=== PATIENT | female | born 1955 | race Caucasian/White ===

== ENCOUNTER → 2021-03-03 | Outpatient (CLI) | payer MEDICARE, OTHER | LOC: MAMMO 12:10 | PROVIDERS: ATTEND Internal Medicine | DX: Z12.31 Encounter for screening mammogram for malignant neoplasm of breast (principal); M89.9 Disorder of bone, unspecified | CPT/HCPCS: 77067; 77080 ==

== ENCOUNTER → 2021-05-11 | Day surgery (SDC) | payer MEDICARE, OTHER ==
[2021-05-07 12:43] LABS: BASOPHILS # (AUTO) 0.1 (0.0-0.1); EOSINOPHILS # (AUTO) 0.2 (0.0-0.4); EOSINOPHILS % 2.6 % (0.0-6.0); HEMATOCRIT 40.9 % (34.2-44.1); HEMOGLOBIN 13.8 g/dL (12.0-16.0); LYMPHOCYTES % 27.4 % (18.0-39.1); MEAN CORPUSCULAR HEMOGLOBIN 28.2 pg (28-32); MEAN CORPUSCULAR HGB CONC 33.7 g/dL (31-35); MEAN CORPUSCULAR VOLUME 83.5 fL (81-99); MONOCYTES # (AUTO) 0.8 (0.2-0.8); NEUTROPHILS # (AUTO) 4.2 (2.1-6.9); NEUTROPHILS % 57.6 % (38.7-80.0); PLATELET COUNT 299 x10e3/uL (140-360); RED CELL DISTRIBUTION WIDTH 12.4 % (11.7-14.4)
[2021-05-07 13:16] LABS: ANION GAP 15.9 mmol/L (8-16); CALCIUM 9.7 mg/dL (8.4-10.2); CREATININE, SERUM 1.8 mg/dL (0.57-1.11); POTASSIUM 3.9 mmol/L (3.5-5.1)
[~2021-05-11] MED LIST: AMILORIDE HCL5 MG PO; AUGMENTIN 500-1 EACH PO; BENZTROPINE ME0.5 MG PO; BUPIVACAINE HCL 0.5% INJ 30 ML VIAL INJ ONE; GLIPIZIDE ER5 MG PO; LEXAPRO20 MG PO; LIDOCAINE HCL 2% LOCAL INJ 5 ML SDV VIAL INJ ONE; MAGNESIUM OXID400 MG PO; MELATONIN3 MG PO; METOCLOPRAM5 MG/5 ML PO; MONTELUKAST SOD10 MG PO; PEPCID AC10 MG PO; POTASSIUM CHLO20 ME1 PO; POVIDONE IODINE 0.05% 0.05 % ML PO ONE; PRAVASTATIN SOD20 MG PO; PROPOFOL IV EMULSION 10 MG/ML 20 ML VIAL ONE; PROTONIX20 MG PO; SPIRONOLACTONE25 MG PO; ZINC OD
[2021-05-11 07:45] VITALS: BP 119/65
== END | disposition home or self-care (01) ==
LOC: OR 05:32
PROVIDERS: ATTEND Specialist
DX: T84.84XA Pain due to internal orthopedic prosthetic devices, implants and grafts, initial encounter (principal); E26.81 Bartter's syndrome; I25.2 Old myocardial infarction; I34.1 Nonrheumatic mitral (valve) prolapse; E11.9 Type 2 diabetes mellitus without complications; Y83.8 Other surgical procedures as the cause of abnormal reaction of the patient, or of later complication, without mention of misadventure at the time of the procedure; Z88.6 Allergy status to analgesic agent; Z88.1 Allergy status to other antibiotic agents; Z88.8 Allergy status to other drugs, medicaments and biological substances; Z01.810 Encounter for preprocedural cardiovascular examination; Z01.812 Encounter for preprocedural laboratory examination; Z20.822 Contact with and (suspected) exposure to COVID-19; Z79.84 Long term (current) use of oral hypoglycemic drugs; Z68.30 Body mass index [BMI] 30.0-30.9, adult
CPT/HCPCS: 20610; 36415 ×2; 77002; 80048; 82948; 85025; 93005; J2001; J2704; U0002; 76000

== ENCOUNTER → 2021-06-21 | Outpatient (CLI) | payer MEDICARE, OTHER ==
[~2021-06-21] MED LIST changes: -BUPIVACAINE HCL 0.5% INJ 30 ML VIAL INJ ONE; -LIDOCAINE HCL 2% LOCAL INJ 5 ML SDV VIAL INJ ONE; -POVIDONE IODINE 0.05% 0.05 % ML PO ONE; -PROPOFOL IV EMULSION 10 MG/ML 20 ML VIAL ONE
== END ==
LOC: US 06:35
PROVIDERS: ATTEND Internal Medicine
DX: R06.02 Shortness of breath (principal); I71.4 Abdominal aortic aneurysm, without rupture; I73.9 Peripheral vascular disease, unspecified; M54.2 Cervicalgia; M79.605 Pain in left leg; M79.604 Pain in right leg
CPT/HCPCS: 71250; 72050; 76700; 93306; 93925

== ENCOUNTER → 2021-08-25 | Day surgery (SDC) | payer MEDICARE, OTHER ==
[2021-08-23 14:20] LABS: BASOPHILS # (AUTO) 0.1 (0.0-0.1); BASOPHILS % 0.9 % (0.0-1.0); EOSINOPHILS # (AUTO) 0.3 (0.0-0.4); EOSINOPHILS % 3.1 % (0.0-6.0); HEMATOCRIT 40.7 % (34.2-44.1); HEMOGLOBIN 13.6 g/dL (12.0-16.0); LYMPHOCYTES # (AUTO) 2.7 (1.0-3.2); LYMPHOCYTES % 28.3 % (18.0-39.1); MEAN CORPUSCULAR HEMOGLOBIN 27.6 pg (28-32); MEAN CORPUSCULAR HGB CONC 33.4 g/dL (31-35); MEAN CORPUSCULAR VOLUME 82.7 fL (81-99); MONOCYTES # (AUTO) 1.1 (0.2-0.8); MONOCYTES % 12.1 % (4.4-11.3); NEUTROPHILS # (AUTO) 5.1 (2.1-6.9); NEUTROPHILS % 54.9 % (38.7-80.0); PLATELET COUNT 257 x10e3/uL (140-360); RED BLOOD COUNT 4.92 x10e6/uL (3.6-5.1); RED CELL DISTRIBUTION WIDTH 13.4 % (11.7-14.4)
[~2021-08-25] MED LIST changes: +PROVENTIL HFA6.7 GM INH; +RENA-VITE TABL0.8 MG PO; +VITAMIN D250 MCG PO
[2021-08-25 13:10] VITALS: BP 121/74
== END | disposition home or self-care (01) ==
LOC: OR 10:21
PROVIDERS: ATTEND Internal Medicine Gastroenterology
DX: K21.9 Gastro-esophageal reflux disease without esophagitis (principal); K29.70 Gastritis, unspecified, without bleeding; K20.90 Esophagitis, unspecified without bleeding; K31.1 Adult hypertrophic pyloric stenosis; E11.9 Type 2 diabetes mellitus without complications; I25.2 Old myocardial infarction; I44.4 Left anterior fascicular block; E87.6 Hypokalemia; E83.42 Hypomagnesemia; E78.00 Pure hypercholesterolemia, unspecified; F32.A Depression, unspecified; Z01.810 Encounter for preprocedural cardiovascular examination; Z01.812 Encounter for preprocedural laboratory examination; Z20.822 Contact with and (suspected) exposure to COVID-19; Z79.84 Long term (current) use of oral hypoglycemic drugs; Z68.30 Body mass index [BMI] 30.0-30.9, adult; Z86.010 Personal history of colon polyps
CPT/HCPCS: 36415 ×2; 43239; 43245; 82948; 85025; 88305; 88312; 93005; C1726; C9113; U0002; 43450

== ENCOUNTER 2022-05-30 20:36 | Emergency (ER) | payer MEDICARE, OTHER ==
[~2022-05-30] VITALS: Ht 162.6 cm; Wt 57.6 kg
[2022-05-30] MEDS ORDERED: ONDANSETRON HCL INJ 2MG/ML 2ML 2 MG/ML VIAL IV STA (20:46)
[2022-05-30 21:13] LABS: BASOPHILS # (AUTO) 0.1 (0.0-0.1); BASOPHILS % 0.7 % (0.0-1.0); EOSINOPHILS # (AUTO) 0.1 (0.0-0.4); EOSINOPHILS % 1.6 % (0.0-6.0); HEMATOCRIT 41.1 % (34.2-44.1); HEMOGLOBIN 13.9 g/dL (12.0-16.0); LYMPHOCYTES # (AUTO) 2.4 (1.0-3.2); LYMPHOCYTES % 29.6 % (18.0-39.1); MEAN CORPUSCULAR HEMOGLOBIN 29.3 pg (28-32); MEAN CORPUSCULAR HGB CONC 33.8 g/dL (31-35); MEAN CORPUSCULAR VOLUME 86.7 fL (81-99); MONOCYTES % 12.3 % (4.4-11.3); NEUTROPHILS # (AUTO) 4.5 (2.1-6.9); NEUTROPHILS % 55.6 % (38.7-80.0); PLATELET COUNT 305 x10e3/uL (140-360); RED BLOOD COUNT 4.74 x10e6/uL (3.6-5.1); RED CELL DISTRIBUTION WIDTH 12.8 % (11.7-14.4)
[2022-05-30 21:30] LABS: ALBUMIN/GLOBULIN RATIO 1.1 (0.8-2.0); ANION GAP 16.2 mmol/L (8-16); CALCIUM 10.2 mg/dL (8.4-10.2); CREATININE, SERUM 1.81 mg/dL (0.57-1.11); POTASSIUM 4.2 mmol/L (3.5-5.1)
[2022-05-31] MEDS ORDERED: KLOR-CON M2020 MEQ PO (12:39)
[2022-05-31] MEDS ORDERED: MAGNESIUM OXID400 MG PO (12:41)
== END 2022-05-30 22:04 | disposition home or self-care (01) ==
LOC: ER 20:41
DX: R10.10 Upper abdominal pain, unspecified (principal); K29.70 Gastritis, unspecified, without bleeding; K44.9 Diaphragmatic hernia without obstruction or gangrene; E11.22 Type 2 diabetes mellitus with diabetic chronic kidney disease; N18.9 Chronic kidney disease, unspecified; K21.9 Gastro-esophageal reflux disease without esophagitis
CPT/HCPCS: 36415; 74022; 80053; 82784; 83516; 83690; 85025; 86256; 99284; C9113; J2405

== ENCOUNTER 2022-05-31 10:20 | Inpatient (IN) | payer MEDICARE, OTHER ==
[~2022-05-31] VITALS: Ht 162.6 cm; Wt 57.6 kg
[2022-05-31] MEDS ORDERED: METOCLOPRAMIDE HCL 10 MG/2ML VIAL IV PRN (12:00)
[2022-05-31] MEDS ORDERED: KLOR-CON M2020 MEQ PO (12:39)
[2022-05-31] MEDS ORDERED: MAGNESIUM OXID400 MG PO (12:41)
[2022-05-31 13:18] LABS: CREATINE KINASE MB 1.7 ng/mL (0-5.0)
[2022-05-31] MEDS: SODIUM CHLORIDE 0.9% 1000ML 1,000 ML IV SCH ×2 (13:30→20:00)
[2022-05-31 13:41] VITALS: BP 125/72
[2022-05-31 13:42] VITALS: BP 125/72
[2022-05-31 13:47] VITALS: BP 125/72
[2022-05-31] MEDS: ONDANSETRON HCL INJ 2MG/ML 2ML 2 MG/ML VIAL IV PRN ×2 (13:54→20:18)
[2022-05-31] MEDS: Morphine 4mg INJECTION 4 MG/ML INJ IV PRN ×2 (13:54→20:18)
[2022-05-31] MEDS ORDERED: NON-FORMULARY MEDICATION (Benztropine Mesylate 0.5 MG) PO SCH (17:00)
[2022-05-31 17:16] VITALS: BP 97/86
[2022-05-31] MEDS: PANTOPRAZOLE SOD 40 MG TABEC PO SCH (17:17)
[2022-05-31] MEDS: BENZTROPINE MESYLATE 1 MG TAB PO SCH (17:17)
[2022-05-31] MEDS: POTASSIUM CHLORIDE 20 MEQ TAB CR PO SCH (17:17)
[2022-05-31] MEDS: MAGNESIUM OXIDE 400 MG TAB PO SCH (17:17)
[2022-05-31 17:23] LABS: CHOL/HDL RATIO 2.8 (3.0-3.6)
[2022-05-31 20:00] VITALS: BP 118/74
[2022-05-31] MEDS: PRAVASTATIN 20 MG TAB PO SCH (20:31)
[2022-05-31] MEDS: MELATONIN 5 MG TABLET PO SCH (20:31)
[2022-05-31] MEDS ORDERED: PRAVASTATIN 20 MG TAB PO SCH (21:00)
[2022-05-31 21:19] LABS: CREATINE KINASE 59 IU/L (29-168)
[2022-06-01] VITALS (11 sets, daily range): BP systolic 108–136; BP diastolic 55–97
[2022-06-01] MEDS: SODIUM CHLORIDE 0.9% 1000ML 1,000 ML IV SCH ×3 (01:53→21:53)
[2022-06-01] MEDS: ONDANSETRON HCL INJ 2MG/ML 2ML 2 MG/ML VIAL IV PRN ×3 (06:02→19:48)
[2022-06-01] MEDS: Morphine 4mg INJECTION 4 MG/ML INJ IV PRN ×3 (06:02→19:48)
[2022-06-01 07:07] LABS: ALBUMIN 3.2 g/dL (3.5-5.0); ALBUMIN/GLOBULIN RATIO 1.1 (0.8-2.0); ANION GAP 12.5 mmol/L (8-16); CALCIUM 9.1 mg/dL (8.4-10.2); CREATININE, SERUM 1.65 mg/dL (0.57-1.11); POTASSIUM 3.5 mmol/L (3.5-5.1)
[2022-06-01 08:38] LABS: CREATINE KINASE 54 IU/L (29-168)
[2022-06-01] MEDS: BENZTROPINE MESYLATE 1 MG TAB PO SCH ×2 (09:00→17:21)
[2022-06-01 09:47] LABS: BASOPHILS % 0.6 % (0.0-1.0); EOSINOPHILS # (AUTO) 0.2 (0.0-0.4); EOSINOPHILS % 3.4 % (0.0-6.0); HEMATOCRIT 36.4 % (34.2-44.1); HEMOGLOBIN 11.8 g/dL (12.0-16.0); LYMPHOCYTES # (AUTO) 2.4 (1.0-3.2); LYMPHOCYTES % 36.4 % (18.0-39.1); MEAN CORPUSCULAR HEMOGLOBIN 29.5 pg (28-32); MEAN CORPUSCULAR HGB CONC 32.4 g/dL (31-35); MONOCYTES # (AUTO) 0.8 (0.2-0.8); MONOCYTES % 11.8 % (4.4-11.3); NEUTROPHILS # (AUTO) 3.1 (2.1-6.9); NEUTROPHILS % 47.2 % (38.7-80.0); PLATELET COUNT 240 x10e3/uL (140-360); RED CELL DISTRIBUTION WIDTH 13.1 % (11.7-14.4)
[2022-06-01 10:29] LABS: AMYLASE 41 U/L (25-125); LIPASE 32 U/L (8-78)
[2022-06-01] MEDS: POTASSIUM CHLORIDE 20 MEQ TAB CR PO SCH ×2 (11:53→17:21)
[2022-06-01] MEDS: PANTOPRAZOLE SOD 40 MG TABEC PO SCH ×2 (11:54→17:20)
[2022-06-01] MEDS: ESCITALOPRAM OXALATE 10 MG TAB PO SCH (11:54)
[2022-06-01] MEDS: MAGNESIUM OXIDE 400 MG TAB PO SCH ×2 (11:54→17:20)
[2022-06-01] MEDS: MONTELUKAST SODIUM 10 MG TAB PO SCH (11:55)
[2022-06-01] MEDS: FOLIC ACID/CYANOCOB/PYRIDOXINE TAB PO SCH (11:55)
[2022-06-01] MEDS: PRAVASTATIN 20 MG TAB PO SCH (21:53)
[2022-06-01] MEDS: MELATONIN 5 MG TABLET PO SCH (21:53)
[2022-06-02] VITALS (8 sets, daily range): BP systolic 89–155; BP diastolic 53–102
[2022-06-02] MEDS: Morphine 4mg INJECTION 4 MG/ML INJ IV PRN (01:21)
[2022-06-02] MEDS: ONDANSETRON HCL INJ 2MG/ML 2ML 2 MG/ML VIAL IV PRN ×2 (01:21→13:10)
[2022-06-02] MEDS ORDERED: KETOROLAC TROMETHAMINE 30 MG/ML VIAL IM PRN (02:15)
[2022-06-02] MEDS: HYDROMORPHONE 1MG/1ML INJ IV PRN ×3 (03:45→21:38)
[2022-06-02] MEDS: SODIUM CHLORIDE 0.9% 1000ML 1,000 ML IV SCH ×3 (05:55→21:29)
[2022-06-02 06:41] LABS: BASOPHILS % 0.3 % (0.0-1.0); EOSINOPHILS # (AUTO) 0.1 (0.0-0.4); EOSINOPHILS % 0.9 % (0.0-6.0); HEMATOCRIT 33.5 % (34.2-44.1); HEMOGLOBIN 11.6 g/dL (12.0-16.0); LYMPHOCYTES # (AUTO) 1.5 (1.0-3.2); LYMPHOCYTES % 17.7 % (18.0-39.1); MEAN CORPUSCULAR HEMOGLOBIN 30.1 pg (28-32); MEAN CORPUSCULAR HGB CONC 34.6 g/dL (31-35); MEAN CORPUSCULAR VOLUME 86.8 fL (81-99); MONOCYTES # (AUTO) 0.9 (0.2-0.8); MONOCYTES % 10.6 % (4.4-11.3); PLATELET COUNT 250 x10e3/uL (140-360); RED BLOOD COUNT 3.86 x10e6/uL (3.6-5.1); RED CELL DISTRIBUTION WIDTH 12.8 % (11.7-14.4)
[2022-06-02 06:54] LABS: INR 0.93; PROTHROMBIN TIME 13.3 seconds (11.9-14.5)
[2022-06-02 07:08] LABS: ALBUMIN 3.2 g/dL (3.5-5.0); ALBUMIN/GLOBULIN RATIO 1.2 (0.8-2.0); ANION GAP 15.3 mmol/L (8-16); CALCIUM 8.9 mg/dL (8.4-10.2); CREATININE, SERUM 1.67 mg/dL (0.57-1.11); MAGNESIUM 1.6 MG/DL (1.3-2.1); POTASSIUM 3.3 mmol/L (3.5-5.1)
[2022-06-02] MEDS ORDERED: FENTANYL CITRATE/PF 100MCG/2 ML INJ ONE ×2 (08:15→13:58)
[2022-06-02] MEDS ORDERED: POTASSIUM CHLORIDE 10MEQ/100ML 200 ML IV ONE (08:30)
[2022-06-02] MEDS ORDERED: MAGNESIUM SULF 1GRAM/DEXTROSE 100 ML IV ONE (09:00)
[2022-06-02] MEDS: MONTELUKAST SODIUM 10 MG TAB PO SCH (09:53)
[2022-06-02] MEDS: POTASSIUM CHLORIDE 20 MEQ TAB CR PO SCH ×2 (09:53→18:05)
[2022-06-02] MEDS: FOLIC ACID/CYANOCOB/PYRIDOXINE TAB PO SCH (09:53)
[2022-06-02] MEDS: PANTOPRAZOLE SOD 40 MG TABEC PO SCH ×2 (09:54→18:05)
[2022-06-02] MEDS: BENZTROPINE MESYLATE 1 MG TAB PO SCH ×2 (09:54→18:05)
[2022-06-02] MEDS: ESCITALOPRAM OXALATE 10 MG TAB PO SCH (09:54)
[2022-06-02] MEDS: MAGNESIUM OXIDE 400 MG TAB PO SCH ×2 (09:54→18:05)
[2022-06-02] MEDS ORDERED: PROPOFOL IV EMULSION 10 MG/ML 20 ML VIAL ONE (13:45)
[2022-06-02] MEDS ORDERED: LIDOCAINE HCL 2% LOCAL INJ 5 ML SDV VIAL INJ ONE (13:45)
[2022-06-02] MEDS ORDERED: POVIDONE IODINE 0.05% 0.05 % ML PO ONE (13:45)
[2022-06-02] MEDS: SODIUM BICARBONATE 650 MG TAB PO SCH (18:05)
[2022-06-02] MEDS: MELATONIN 5 MG TABLET PO SCH (21:28)
[2022-06-02] MEDS: PRAVASTATIN 20 MG TAB PO SCH (21:28)
[2022-06-03] VITALS: BP 138/76
[2022-06-03 04:00] VITALS: BP 131/52
[2022-06-03 06:12] LABS: BASOPHILS # (AUTO) 0.1 (0.0-0.1); BASOPHILS % 0.7 % (0.0-1.0); EOSINOPHILS # (AUTO) 0.3 (0.0-0.4); EOSINOPHILS % 4.1 % (0.0-6.0); HEMATOCRIT 32.9 % (34.2-44.1); HEMOGLOBIN 10.9 g/dL (12.0-16.0); LYMPHOCYTES # (AUTO) 1.7 (1.0-3.2); LYMPHOCYTES % 23.4 % (18.0-39.1); MEAN CORPUSCULAR HEMOGLOBIN 29.6 pg (28-32); MEAN CORPUSCULAR HGB CONC 33.1 g/dL (31-35); MEAN CORPUSCULAR VOLUME 89.4 fL (81-99); MONOCYTES # (AUTO) 0.8 (0.2-0.8); MONOCYTES % 11.4 % (4.4-11.3); NEUTROPHILS # (AUTO) 4.4 (2.1-6.9); NEUTROPHILS % 60.1 % (38.7-80.0); PLATELET COUNT 217 x10e3/uL (140-360); RED BLOOD COUNT 3.68 x10e6/uL (3.6-5.1)
[2022-06-03 06:36] LABS: ALBUMIN 2.8 g/dL (3.5-5.0); ANION GAP 13.9 mmol/L (8-16); CALCIUM 8.1 mg/dL (8.4-10.2); CREATININE, SERUM 1.36 mg/dL (0.57-1.11); MAGNESIUM 1.6 MG/DL (1.3-2.1)
[2022-06-03 06:55] LABS: POTASSIUM 2.9 mmol/L (3.5-5.1)
[2022-06-03] MEDS: SODIUM CHLORIDE 0.9% 1000ML 1,000 ML IV SCH ×2 (07:26→12:20)
[2022-06-03 08:00] VITALS: BP 131/52
[2022-06-03 08:16] VITALS: BP 123/54
[2022-06-03] MEDS ORDERED: POTASSIUM CHLORIDE 20 MEQ TAB CR PO ONE (09:30)
[2022-06-03] MEDS ORDERED: MAGNESIUM OXIDE 400 MG TAB PO ONE (09:30)
[2022-06-03] MEDS: SODIUM BICARBONATE 650 MG TAB PO SCH (10:56)
[2022-06-03] MEDS: POTASSIUM CHLORIDE 20 MEQ TAB CR PO SCH (10:57)
[2022-06-03] MEDS: BENZTROPINE MESYLATE 1 MG TAB PO SCH (11:01)
[2022-06-03] MEDS: MONTELUKAST SODIUM 10 MG TAB PO SCH (11:01)
[2022-06-03] MEDS: PANTOPRAZOLE SOD 40 MG TABEC PO SCH (11:02)
[2022-06-03] MEDS: MAGNESIUM OXIDE 400 MG TAB PO SCH (11:02)
[2022-06-03] MEDS: FOLIC ACID/CYANOCOB/PYRIDOXINE TAB PO SCH (11:02)
[2022-06-03] MEDS: ESCITALOPRAM OXALATE 10 MG TAB PO SCH (11:04)
[2022-06-03 12:19] VITALS: BP 111/58
[2022-06-03 13:56] LABS: ANION GAP 13.9 mmol/L (8-16); CALCIUM 8.4 mg/dL (8.4-10.2); CREATININE, SERUM 1.67 mg/dL (0.57-1.11); POTASSIUM 3.9 mmol/L (3.5-5.1)
[2022-06-03] MEDS ORDERED: ONDANSETRON HCL 4 MG ORAL DISINTEGRATING TAB PO PRN (15:00)
== END 2022-06-03 16:07 | disposition home health service (06) | DRG 560 ==
LOC: ER 11:24 → ERHOLD 11:59 → MED/SURG2 13:20
PROVIDERS: ADMIT Internal Medicine; ATTEND Internal Medicine
PROC: 0SWAXJZ Revision of Synthetic Substitute in Right Hip Joint, Acetabular Surface, External Approach (ICD-10-PCS; principal; 2022-06-02 07:43)
DX: T84.020A Dislocation of internal right hip prosthesis, initial encounter (principal); E87.2 Acidosis; N17.9 Acute kidney failure, unspecified; E26.81 Bartter's syndrome; E11.22 Type 2 diabetes mellitus with diabetic chronic kidney disease; E11.43 Type 2 diabetes mellitus with diabetic autonomic (poly)neuropathy; E87.8 Other disorders of electrolyte and fluid balance, not elsewhere classified; K31.84 Gastroparesis; K21.9 Gastro-esophageal reflux disease without esophagitis; E11.65 Type 2 diabetes mellitus with hyperglycemia; I12.9 Hypertensive chronic kidney disease with stage 1 through stage 4 chronic kidney disease, or unspecified chronic kidney disease; G24.9 Dystonia, unspecified; I25.10 Atherosclerotic heart disease of native coronary artery without angina pectoris; N18.32 Chronic kidney disease, stage 3b; M81.0 Age-related osteoporosis without current pathological fracture; R07.89 Other chest pain; E87.6 Hypokalemia; Z87.891 Personal history of nicotine dependence; Z96.641 Presence of right artificial hip joint; I25.2 Old myocardial infarction; Z88.3 Allergy status to other anti-infective agents
CPT/HCPCS: 0223U; 36415; 71045; 76770; 80048; 80053; 80061; 82150; 82550; 82553; 82948; 83036; 83690; 83735; 84484; 85025; 85610; 93005; 93306; 97139; 99251; 99284; J1170; J2001; J2270; J2405; J3010; J3475; J3480; J7030

== ENCOUNTER 2022-06-17 10:27 | Emergency (ER) | payer MEDICARE, OTHER ==
[~2022-06-17] VITALS: Ht 162.6 cm; Wt 57.6 kg
[~2022-06-17 10:27] MED LIST changes: +KLOR-CON M2020 MEQ PO
[2022-06-17] MEDS ORDERED: ONDANSETRON HCL INJ 2MG/ML 2ML 2 MG/ML VIAL IV STA (10:43)
[2022-06-17] MEDS ORDERED: Morphine 4mg INJECTION 4 MG/ML INJ IV ONE (10:45)
[2022-06-17] MEDS ORDERED: SODIUM CHLORIDE 0.9% 1000ML 1,000 ML IV SCH (10:45)
[2022-06-17 10:56] LABS: BASOPHILS # (AUTO) 0.1 (0.0-0.1); BASOPHILS % 0.8 % (0.0-1.0); EOSINOPHILS # (AUTO) 0.2 (0.0-0.4); EOSINOPHILS % 2.1 % (0.0-6.0); HEMATOCRIT 40.8 % (34.2-44.1); HEMOGLOBIN 13.6 g/dL (12.0-16.0); LYMPHOCYTES # (AUTO) 1.6 (1.0-3.2); LYMPHOCYTES % 17.1 % (18.0-39.1); MEAN CORPUSCULAR HEMOGLOBIN 29.5 pg (28-32); MEAN CORPUSCULAR HGB CONC 33.3 g/dL (31-35); MEAN CORPUSCULAR VOLUME 88.5 fL (81-99); MONOCYTES # (AUTO) 0.9 (0.2-0.8); MONOCYTES % 9.6 % (4.4-11.3); NEUTROPHILS # (AUTO) 6.6 (2.1-6.9); NEUTROPHILS % 69.6 % (38.7-80.0); PLATELET COUNT 283 x10e3/uL (140-360); RED BLOOD COUNT 4.61 x10e6/uL (3.6-5.1); RED CELL DISTRIBUTION WIDTH 12.7 % (11.7-14.4)
[2022-06-17] MEDS ORDERED: ONDANSETRON HCL INJ 2MG/ML 2ML 2 MG/ML VIAL ONE (11:02)
[2022-06-17] MEDS ORDERED: Morphine 4mg INJECTION 4 MG/ML INJ ONE (11:02)
[2022-06-17] MEDS ORDERED: SODIUM CHLORIDE 0.9% 1000ML 1,000 ML ONE ×2 (11:02→12:13)
[2022-06-17 11:13] LABS: ALBUMIN 3.8 g/dL (3.5-5.0); CALCIUM 9.9 mg/dL (8.4-10.2); CREATININE, SERUM 1.89 mg/dL (0.57-1.11)
[2022-06-17] MEDS ORDERED: PROPOFOL IV EMULSION 10 MG/ML 20 ML VIAL IV ONE (11:45)
[2022-06-17 12:00] VITALS: BP 113/58
[2022-06-17] MEDS ORDERED: TRAMADOL HCL 50 MG TAB PO ONE (13:00)
== END 2022-06-17 14:43 | disposition home or self-care (01) ==
LOC: ER 10:36
DX: M25.551 Pain in right hip (principal); S73.014A Posterior dislocation of right hip, initial encounter; X50.1XXA Overexertion from prolonged static or awkward postures, initial encounter; Y92.091 Bathroom in other non-institutional residence as the place of occurrence of the external cause; E11.9 Type 2 diabetes mellitus without complications; N18.9 Chronic kidney disease, unspecified; K21.9 Gastro-esophageal reflux disease without esophagitis; F32.A Depression, unspecified
CPT/HCPCS: 27252; 36415; 72170; 73501; 80053; 85025; 99284; J2270; J2405; J2704; J7030

== ENCOUNTER 2022-07-05 19:45 | Inpatient (IN) | payer MEDICARE, OTHER ==
[~2022-07-05] VITALS: Ht 160 cm; Wt 57.6 kg
[2022-07-05] MEDS ORDERED: Morphine 4mg INJECTION 4 MG/ML INJ IV STA (20:07)
[2022-07-05] MEDS ORDERED: ONDANSETRON HCL INJ 2MG/ML 2ML 2 MG/ML VIAL IV STA (20:08)
[2022-07-05 20:09] LABS: BASOPHILS # (AUTO) 0.1 (0.0-0.1); BASOPHILS % 0.6 % (0.0-1.0); EOSINOPHILS # (AUTO) 0.3 (0.0-0.4); EOSINOPHILS % 3.1 % (0.0-6.0); HEMATOCRIT 38.3 % (34.2-44.1); HEMOGLOBIN 12.8 g/dL (12.0-16.0); LYMPHOCYTES # (AUTO) 3.3 (1.0-3.2); LYMPHOCYTES % 31.3 % (18.0-39.1); MEAN CORPUSCULAR HEMOGLOBIN 29.4 pg (28-32); MEAN CORPUSCULAR HGB CONC 33.4 g/dL (31-35); MONOCYTES # (AUTO) 1.1 (0.2-0.8); MONOCYTES % 10.5 % (4.4-11.3); NEUTROPHILS # (AUTO) 5.7 (2.1-6.9); PLATELET COUNT 298 x10e3/uL (140-360); RED BLOOD COUNT 4.35 x10e6/uL (3.6-5.1); RED CELL DISTRIBUTION WIDTH 12.3 % (11.7-14.4)
[2022-07-05] MEDS ORDERED: PROPOFOL IV EMULSION 10 MG/ML 20 ML VIAL IV STA (20:34)
[2022-07-05] MEDS ORDERED: KETAMINE HCL INJ 50 MG/ML 10 ML VIAL IV STA (20:34)
[2022-07-05 21:06] LABS: ALBUMIN/GLOBULIN RATIO 1.2 (0.8-2.0); ANION GAP 20.4 mmol/L (8-16); CALCIUM 9.7 mg/dL (8.4-10.2); CREATININE, SERUM 1.82 mg/dL (0.57-1.11); POTASSIUM 3.4 mmol/L (3.5-5.1)
[2022-07-05] MEDS ORDERED: Morphine 4mg INJECTION 4 MG/ML INJ IV PRN ×2 (21:30→23:45)
[2022-07-05] MEDS: SODIUM CHLORIDE 0.9% 1000ML 1,000 ML IV SCH (21:30)
[2022-07-05] MEDS ORDERED: Morphine 4mg INJECTION 4 MG/ML INJ IV ONE (23:45)
[2022-07-05] MEDS ORDERED: ONDANSETRON HCL INJ 2MG/ML 2ML 2 MG/ML VIAL IV PRN (23:45)
[2022-07-06] VITALS (7 sets, daily range): BP systolic 103–125; BP diastolic 59–87
[2022-07-06] MEDS: ONDANSETRON HCL INJ 2MG/ML 2ML 2 MG/ML VIAL IV PRN ×2 (03:33→08:15)
[2022-07-06] MEDS ORDERED: HYDROMORPHONE 1MG/1ML INJ IV PRN (08:45)
[2022-07-06] MEDS: ESCITALOPRAM OXALATE 10 MG TAB PO SCH ×2 (09:00→13:43)
[2022-07-06] MEDS: MAGNESIUM OXIDE 400 MG TAB PO SCH ×2 (09:00→13:43)
[2022-07-06] MEDS: MONTELUKAST SODIUM 10 MG TAB PO SCH ×2 (09:00→13:41)
[2022-07-06] MEDS: BENZTROPINE MESYLATE 1 MG TAB PO SCH ×2 (10:00→13:41)
[2022-07-06] MEDS: POTASSIUM CHLORIDE 20 MEQ TAB CR PO STA ×2 (11:20→13:43)
[2022-07-06] MEDS: SODIUM CHLORIDE 0.9% 1000ML 1,000 ML IV SCH ×2 (11:20→13:46)
[2022-07-06] MEDS ORDERED: SODIUM CHLORIDE 0.9% 1000ML 1,000 ML ONE (11:22)
[2022-07-06] MEDS ORDERED: DIPHENHYDRAMINE HCL INJ 50 MG/ML VIAL IV PRN (12:30)
[2022-07-06] MEDS ORDERED: KETOROLAC TROMETHAMINE 30 MG/ML VIAL IV PRN (12:30)
[2022-07-06] MEDS ORDERED: FENTANYL CITRATE/PF 100MCG/2 ML INJ ONE (12:53)
[2022-07-06 14:42] LABS: ANION GAP 16.3 mmol/L (8-16); CALCIUM 9.1 mg/dL (8.4-10.2); CREATININE, SERUM 1.49 mg/dL (0.57-1.11); MAGNESIUM 1.7 MG/DL (1.3-2.1); POTASSIUM 3.3 mmol/L (3.5-5.1)
[2022-07-06] MEDS ORDERED: PANTOPRAZOLE SOD 40 MG TABEC PO SCH (16:30)
[2022-07-06] MEDS ORDERED: ACETAMINOPHEN 325 MG TAB PO NR (17:30)
[2022-07-06] MEDS ORDERED: ULTRAM 50MG50 MG PO (17:43)
[2022-07-06] MEDS ORDERED: PROMETHAZINE HC25 M1 PO (17:44)
[2022-07-06] MEDS ORDERED: DICYCLOMINE HCL10 MG PO (17:45)
[2022-07-06] MEDS ORDERED: GLIPIZIDE ER5 MG PO (17:47)
[2022-07-06] MEDS ORDERED: AMILORIDE HCL5 MG PO (17:47)
[2022-07-06] MEDS ORDERED: SPIRONOLACTONE25 MG PO (17:47)
[2022-07-06] MEDS ORDERED: NEPHRO-VITE TABL1 EA PO (17:47)
[2022-07-06] MEDS ORDERED: PRAVASTATIN 20 MG TAB PO SCH (21:00)
[2022-07-06] MEDS ORDERED: MELATONIN 5 MG TABLET PO SCH (21:00)
== END 2022-07-06 18:37 | disposition home or self-care (01) | DRG 561 ==
LOC: ER 19:49 → ERHOLD 21:25 → ER 23:10 → MED/SURG 23:53
PROVIDERS: ADMIT Internal Medicine; ATTEND Internal Medicine
PROC: 0SS9XZZ Reposition Right Hip Joint, External Approach (ICD-10-PCS; principal; 2022-07-06 12:12)
DX: T84.020A Dislocation of internal right hip prosthesis, initial encounter (principal); N18.32 Chronic kidney disease, stage 3b; E26.81 Bartter's syndrome; I10 Essential (primary) hypertension; E11.22 Type 2 diabetes mellitus with diabetic chronic kidney disease; E11.43 Type 2 diabetes mellitus with diabetic autonomic (poly)neuropathy; I12.9 Hypertensive chronic kidney disease with stage 1 through stage 4 chronic kidney disease, or unspecified chronic kidney disease; K31.84 Gastroparesis; X50.9XXA Other and unspecified overexertion or strenuous movements or postures, initial encounter; Y92.009 Unspecified place in unspecified non-institutional (private) residence as the place of occurrence of the external cause; Z20.822 Contact with and (suspected) exposure to COVID-19
CPT/HCPCS: 36415; 72170; 76000; 80048; 80053; 82948; 83735; 85025; 94799; 99251; 99284; 99285; J2270; J2405; J3010; J7030

== ENCOUNTER 2022-08-11 17:04 | Emergency (ER) | payer MEDICARE, OTHER ==
[~2022-08-11] VITALS: Ht 152.4 cm; Wt 55.8 kg
[~2022-08-11 17:04] MED LIST changes: +DICYCLOMINE HCL10 MG PO; +NEPHRO-VITE TABL1 EA PO; +PROMETHAZINE HC25 M1 PO; +ULTRAM 50MG50 MG PO
== END 2022-08-11 18:25 | disposition home or self-care (01) ==
LOC: FSED 17:20
DX: H92.03 Otalgia, bilateral (principal); J06.9 Acute upper respiratory infection, unspecified; R51.9 Headache, unspecified; I12.9 Hypertensive chronic kidney disease with stage 1 through stage 4 chronic kidney disease, or unspecified chronic kidney disease; E11.22 Type 2 diabetes mellitus with diabetic chronic kidney disease; N18.9 Chronic kidney disease, unspecified; E78.5 Hyperlipidemia, unspecified; F41.9 Anxiety disorder, unspecified
CPT/HCPCS: 87400; 99283

== ENCOUNTER → 2023-01-25 | Outpatient (CLI) | payer MEDICARE, OTHER | LOC: US 12:21 | PROVIDERS: ATTEND Internal Medicine | DX: E04.1 Nontoxic single thyroid nodule (principal) | CPT/HCPCS: 76536 ==

== ENCOUNTER → 2023-02-08 | Outpatient (CLI) | payer MEDICARE, OTHER | LOC: US 09:31 | PROVIDERS: ATTEND Internal Medicine Endocrinology, Diabetes & Metabolism | DX: E04.2 Nontoxic multinodular goiter (principal) | CPT/HCPCS: 10005; 88172; 88173; 88300 ==

== ENCOUNTER 2024-11-25 10:00 | Emergency (ER) | payer MEDICARE, OTHER ==
[~2024-11-25] VITALS: Ht 160 cm; Wt 55.8 kg
[2024-11-25 10:07] VITALS: TEMP 98.1
[2024-11-25 10:42] LABS: BASOPHILS % 0.2 % (0.0-1.0); EOSINOPHILS # (AUTO) 0.2 (0.0-0.4); HEMATOCRIT 48.9 % (34.2-44.1); HEMOGLOBIN 15.1 g/dL (12.0-16.0); LYMPHOCYTES # (AUTO) 1.1 (1.0-3.2); LYMPHOCYTES % 12.7 % (18.0-39.1); MEAN CORPUSCULAR HGB CONC 30.9 g/dL (31-35); MEAN CORPUSCULAR VOLUME 81.1 fL (81-99); MONOCYTES # (AUTO) 0.6 (0.2-0.8); MONOCYTES % 6.4 % (4.4-11.3); NEUTROPHILS % 78.3 % (38.7-80.0); PLATELET COUNT 248 x10e3/uL (140-360); RED BLOOD COUNT 6.03 x10e6/uL (3.6-5.1); RED CELL DISTRIBUTION WIDTH 17.1 % (11.7-14.4); WHITE BLOOD COUNT 8.92 x10e3/uL (4.8-10.8)
[2024-11-25] MEDS: LACTATED RINGER'S 1,000 ML INJ ONE (10:49)
[2024-11-25 11:02] LABS: ALBUMIN 4.1 g/dL (3.5-5.0); ANION GAP 18.8 mmol/L (8-16); BILIRUBIN,TOTAL 0.6 mg/dL (0.2-1.2); CALCIUM 10.8 mg/dL (8.4-10.2); CREATININE, SERUM 1.94 mg/dL (0.57-1.11); POTASSIUM 3.8 mmol/L (3.5-5.1); TOTAL PROTEIN 8.4 g/dL (6.5-8.1)
[2024-11-25 11:08] LABS: TROPONIN I 0.016 ng/mL (0-0.300)
[2024-11-25 11:57] LABS: CORONAVIRUS COVID-19 AG NEGATIVE (NEGATIVE); INFLUENZA A AG NEGATIVE (NEGATIVE); INFLUENZA B AG NEGATIVE (NEGATIVE)
[2024-11-25 12:13] VITALS: PULSE 84; RESP 18; O2SAT 97
[2024-11-25] MEDS ORDERED: ONDANSETRON ODT4 MG PO (12:17)
[2024-11-25] MEDS ORDERED: XOFLUZA40 MG PO (12:17)
== END 2024-11-25 13:31 | disposition home or self-care (01) ==
LOC: ER 10:09
DX: R11.0 Nausea (principal); Z20.89 Contact with and (suspected) exposure to other communicable diseases; I10 Essential (primary) hypertension; E11.65 Type 2 diabetes mellitus with hyperglycemia; N28.9 Disorder of kidney and ureter, unspecified; E78.5 Hyperlipidemia, unspecified; Z11.52 Encounter for screening for COVID-19; R94.31 Abnormal electrocardiogram [ECG] [EKG]
CPT/HCPCS: 36415; 71045; 80053; 83735; 84484; 85025; 87428; 93005; 99284; J7121